=== PATIENT | female | born 1950 | race Caucasian/White ===

== ENCOUNTER 2018-01-01 18:27 | Emergency (ER) | payer MEDICARE, OTHER ==
[2018-01-01 19:00] VITALS: BP 149/73
--- NOTE | 2018-01-01 19:53 | ERPHSYRPT ---
- History of Present Illness Time Seen by Provider: 01/01/18 19:49 Source: patient, family Exam Limitations: no limitations Patient Subjective Stated Complaint: SEEN IN [facility] TODAY FOR WEAKNESS. LABS DONE AND POTASSIUM IS "HIGH" Triage Nursing Assessment: AMBULATED TO ROOM PER SELF. SKIN W/D, COLOR NORMAL. Physician History: [place] the patient is a 67-year-old female with her complaining that she was at [facility] today for lab work to evaluate why she has intermittent weakness about every 3 days. She received a call from [facility] and was told that her potassium level was high and that she needed to come to the ER for evaluation. The patient states she had rhabdomyolysis on May 10 and was admitted. She states the reason she had rhabdomyolysis at that time was do to her use of statin drugs. She has since stopped the use of statin drugs. About every third day she will have more than her usual weakness of her legs. She denies headaches, nausea, vomiting, or diarrhea. She denies urinary problems. Her past medical history is significant for rhabdomyolysis, hypertension, and anxiety. Timing/Duration: today Severity: mild Modifying Factors: Improves With: nothing Associated Symptoms: denies symptoms Allergies/Adverse Reactions: albuterol Allergy (Verified 01/01/18 19:08) codeine Allergy (Verified 01/01/18 19:08) cortisone Allergy (Verified 01/01/18 19:08) prednisone Allergy (Verified 01/01/18 19:08) [id number]-[id number] Reductase Inhibitor Adverse Reaction (Verified 01/01/18 19:08) Home Medications: Aspirin [[place] Aspirin] 81 mg PO DAILY 01/01/18 [History] Buspirone HCl [Buspar] 10 mg PO TID 01/01/18 [History] Estradiol/Norethindrone Acet [Combipatch 0.05-0.14 mg Ptch] 1 each TD UD [History] LORazepam [Lorazepam] 1 mg PO BID 01/01/18 [History] Metoprolol Succinate 25 mg Xl* [Toprol-Xl 25MG Tablets] 25 mg PO DAILY [History] Hx Tetanus, Diphtheria Vaccination/Date Given: No Hx Influenza Vaccination/Date Given: No Hx Pneumococcal Vaccination/Date Given: Yes - Review of Systems Constitutional: Weakness Eyes: No Symptoms Ears, Nose, & Throat: No Symptoms Respiratory: No Cough, No Dyspnea Cardiac: No Chest Pain, No Edema, No Syncope Abdominal/Gastrointestinal: No Abdominal Pain, No Nausea, No Vomiting, No Diarrhea Genitourinary Symptoms: No Dysuria Musculoskeletal: No Back Pain, No Neck Pain Skin: No Rash Neurological: No Dizziness, No Focal Weakness, No Sensory Changes Psychological: No Symptoms Endocrine: No Symptoms Hematologic/Lymphatic: No Symptoms Immunological/Allergic: No Symptoms All Other Systems: Reviewed and Negative - Past Medical History Pertinent Past Medical History: Yes Neurological History: No Pertinent History ENT History: Cataracts Cardiac History: Congestive Heart Failure, High Cholesterol, Hypertension, Other Respiratory History: COPD, Pneumonia Endocrine Medical History: No Pertinent History Musculoskeletal History: Arthritis, Osteoarthritis GI Medical History: Diverticulitis History: Other Other Medical History: RHABDOMYOLOSIS, CYSTOCELE, UTERINE PROLAPSE - Past Surgical History Past Surgical History: Yes Female Surgical History: Tubal Ligation Other Surgical History: BIOPSY RIGHT BREAST, SINUS SURGERY - Social History Smoking Status: Current every day smoker How long have you smoked: 50 Exposure to second hand smoke: No Drug Use: none Patient Lives Alone: No - Female History Hx Now: No - Nursing Vital Signs Nursing Vital Signs: Initial Vital Signs Temperature 97.7 F 01/01/18 18:45 Pulse Rate 51 L 01/01/18 18:45 Respiratory Rate 16 01/01/18 18:45 Blood Pressure 149/73 01/01/18 18:45 O2 Sat by Pulse Oximetry 96 01/01/18 18:45 Pain Scale Pain Intensity 0 - Physical Exam General Appearance: no apparent distress, alert Eye Exam: PERRL/EOMI, eyes nml inspection Ears, Nose, Throat Exam: normal ENT inspection, TMs normal, pharynx normal, moist mucous membranes Neck Exam: normal inspection, non-tender, supple, full range of motion Respiratory Exam: normal breath sounds, lungs clear, No respiratory distress Cardiovascular Exam: regular rate/rhythm, normal heart sounds, normal peripheral pulses Gastrointestinal/Abdomen Exam: soft, normal bowel sounds, No tenderness, No mass Pelvic Exam: not done Rectal Exam: not done Back Exam: normal inspection, normal range of motion, No CVA tenderness, No vertebral tenderness Extremity Exam: normal inspection, normal range of motion, pelvis stable Neurologic Exam: alert, oriented x 3, cooperative, normal mood/affect, nml cerebellar function, nml station & gait, sensation nml, No motor deficits Skin Exam: normal color, warm, dry, No rash Lymphatic Exam: No adenopathy SpO2 Interpretation: normal SpO2: 96 Oxygen Delivery: Room Air Ordered Tests: Active Orders 24 hr Category Date Time Status CBC W DIFF Stat Lab 01/01/18 20:16 Completed CMP Stat Lab 01/01/18 20:16 Completed Lactic Acid Stat Lab 01/01/18 20:12 Completed Myoglobin Stat Lab 01/01/18 20:16 Completed TROPONIN Q3H Lab 01/01/18 20:16 Received TROPONIN Q3H Lab 01/01/18 23:00 Ordered TROPONIN Q3H Lab 01/02/18 02:00 Ordered TROPONIN Q3H Lab 01/02/18 05:00 Ordered TROPONIN Q3H Lab 01/02/18 08:00 Ordered TSH [TSH, 3RD Generation] Stat Lab 01/01/18 20:16 Received UA W/RFX UR CULTURE Stat Lab 01/01/18 19:50 Received Lab/Rad Data: Laboratory Result Diagrams 01/01/18 20:16 01/01/18 20:16 Laboratory Results 01/01/18 01/01/18 01/01/18 Range/Units 20:16 20:16 20:16 WBC 8.9 (4.0-10.5) K/mm3 RBC 4.53 (4.1-5.4) M/mm3 Hgb 15.4 (12.0-16.0) gm/dl Hct 44.5 (35-47) % MCV 98.2 (78-100) fl MCH 34.0 H (26-32) pg MCHC 34.6 (32-36) g/dl RDW 13.5 (11.5-14.0) % Plt Count 196 (150-450) K/mm3 MPV 11.1 H (6-9.5) fl Gran % 72.3 H (36.0-66.0) % Eos # (Auto) 0.08 (0-0.5) Absolute Lymphs (auto) 1.50 (1.0-4.6) Absolute Monos (auto) 0.88 (0.0-1.3) Lymphocytes % 16.8 L (24.0-44.0) % Monocytes % 9.8 (0.0-12.0) % Eosinophils % 0.9 (0.00-5.0) % Basophils % 0.2 (0.0-0.4) % Absolute Granulocytes 6.46 (1.4-6.9) Basophils # 0.02 (0-0.4) Sodium 140 (137-145) mmol/L Potassium 4.3 (3.5-5.1) mmol/L Chloride 105 (98-107) mmol/L Carbon Dioxide 27 (22-30) mmol/L Anion Gap 12.2 (5-15) MEQ/L BUN 25 H (7-17) mg/dL Creatinine 0.94 (0.52-1.04) mg/dL Estimated GFR > 60.0 ML/MIN Glucose 93 (74-106) mg/dL Lactic Acid (0.4-2.0) Calcium 9.8 (8.4-10.2) mg/dL Total Bilirubin 0.60 (0.2-1.3) mg/dL AST 23 (14-36) U/L ALT 21 (0-35) U/L Alkaline Phosphatase 66 (38-126) U/L Myoglobin 53.2 (0-61.5) ng/mL Serum Total Protein 7.8 (6.3-8.2) g/dL Albumin 4.6 (3.5-5.0) g/dL 01/01/18 Range/Units 20:12 WBC (4.0-10.5) K/mm3 RBC (4.1-5.4) M/mm3 Hgb (12.0-16.0) gm/dl Hct (35-47) % MCV (78-100) fl MCH (26-32) pg MCHC (32-36) g/dl RDW (11.5-14.0) % Plt Count (150-450) K/mm3 MPV (6-9.5) fl Gran % (36.0-66.0) % Eos # (Auto) (0-0.5) Absolute Lymphs (auto) (1.0-4.6) Absolute Monos (auto) (0.0-1.3) Lymphocytes % (24.0-44.0) % Monocytes % (0.0-12.0) % Eosinophils % (0.00-5.0) % Basophils % (0.0-0.4) % Absolute Granulocytes (1.4-6.9) Basophils # (0-0.4) Sodium (137-145) mmol/L Potassium (3.5-5.1) mmol/L Chloride (98-107) mmol/L Carbon Dioxide (22-30) mmol/L Anion Gap (5-15) MEQ/L BUN (7-17) mg/dL Creatinine (0.52-1.04) mg/dL Estimated GFR ML/MIN Glucose (74-106) mg/dL Lactic Acid 0.5 (0.4-2.0) Calcium (8.4-10.2) mg/dL Total Bilirubin (0.2-1.3) mg/dL AST (14-36) U/L ALT (0-35) U/L Alkaline Phosphatase (38-126) U/L Myoglobin (0-61.5) ng/mL Serum Total Protein (6.3-8.2) g/dL Albumin (3.5-5.0) g/dL - Departure Time of Disposition: 20:59 Departure Disposition: Home Clinical Impression: Normal exam Condition: Stable Critical Care Time: No Referrals: MARLEY JAVED [Primary Care Provider] - Additional Instructions: You had a normal examination and normal laboratory results tonight. Your serum potassium level is normal at 4.3. Your myoglobin level is also normal at 53.2. At this time you do not have rhabdomyolysis. Follow-up with your primary medical doctor for discussion of your other laboratory results that were performed earlier.
[2018-01-01 20:18] LABS: BASOPHIL % 0.2 % (0.0-0.4); Basophil (Absolute #) 0.02 (0-0.4); Eosinophil % 0.9 % (0.00-5.0); Eosinophil (Absolute #) 0.08 (0-0.5); Granulocyte Absolute (ANC) 6.46 (1.4-6.9); Granulocytes % 72.3 % (36.0-66.0); Hematocrit 44.5 % (35-47); Hemoglobin 15.4 gm/dl (12.0-16.0); Lymphocytes % 16.8 % (24.0-44.0); Mean Cell Volume 98.2 fl (78-100); Mean Corpuscular Hgb Concent. 34.6 g/dl (32-36); Mean Platelet Volume 11.1 fl (6-9.5); Monocyte (Absolute #) 0.88 (0.0-1.3); Monocytes % 9.8 % (0.0-12.0); Platelet Count 196 K/mm3 (150-450); Red Blood Count 4.53 M/mm3 (4.1-5.4); Red Cell Distribution Width 13.5 % (11.5-14.0); White Blood Count 8.9 K/mm3 (4.0-10.5)
[2018-01-01 20:40] LABS: ALBUMIN 4.6 g/dL (3.5-5.0); ALKALINE PHOSPHATASE 66 U/L (38-126); ANION GAP 12.2 MEQ/L (5-15); BLOOD UREA NITROGEN 25 mg/dL (7-17); CHLORIDE 105 mmol/L (98-107); Calcium 9.8 mg/dL (8.4-10.2); Carbon Dioxide 27 mmol/L (22-30); Creatinine 1 0.94 mg/dL (0.52-1.04); Glucose 93 mg/dL (74-106); Potassium 4.3 mmol/L (3.5-5.1); SGOT/AST 23 U/L (14-36); SGPT/ALT 21 U/L (0-35); SODIUM 140 mmol/L (137-145); Total Protein 7.8 g/dL (6.3-8.2)
[2018-01-01 21:07] LABS: Appearance CLEAR (CLEAR); Bilirubin NEGATIVE (NEGATIVE); Blood 50 Ery/ul (0-5); Glucose NEGATIVE (NEGATIVE); Ketones NEGATIVE (NEGATIVE); Leukocyte Esterase NEGATIVE (NEGATIVE); Nitrite NEGATIVE (NEGATIVE); Protein,Urine Dip NEGATIVE (Negative); Urobilinogen NORMAL mg/dL (0-1)
[2018-01-01 21:08] VITALS: PULSE 56; O2SAT 98
[2018-01-01 21:09] LABS: Bacteria RARE /HPF (NEGATIVE); Epithelial Cells FEW /HPF (FEW)
== END 2018-01-01 21:07 | disposition home or self-care (01) ==
LOC: ED 18:27
DX: Z03.89 Encounter for observation for other suspected diseases and conditions ruled out (principal); Z79.82 Long term (current) use of aspirin; Z79.899 Other long term (current) drug therapy
CPT/HCPCS: 36415; 71046; 80053; 81000; 82306; 83605; 83874; 84443; 84484; 85025; 85379; 99283

== ENCOUNTER 2019-05-04 09:18 | Day surgery (SDC) | payer MEDICARE, OTHER ==
--- NOTE | 2019-05-04 08:40 | HP ---
DATE OF SURGERY: 05/04/2019 HISTORY OF PRESENT ILLNESS: The patient is a 69 year-old who had a positive stool blood test. No visible gross rectal bleeding. No prior colonoscopy. No change in bowel movements. No pain. Family history negative for colon cancer, negative for ulcerative colitis. She is in need of screening colonoscopy. PAST MEDICAL HISTORY: Hypertension. Anxiety. Lupus. PAST SURGICAL HISTORY: Tonsillectomy. Adenoidectomy. Breast surgery. Nose surgery. Tubal in the past. MEDICATIONS: Aspirin. Metoprolol. Lorazepam. Duloxetine. Combipatch (hormone patch). ALLERGIES: ALBUTEROL. CODEINE. PREDNISONE. CORTISONE. FAMILY HISTORY: Negative for colon cancer. Family history of cancer and stroke. SOCIAL HISTORY: One half pack per day smoker. Denies alcohol abuse. REVIEW OF SYSTEMS: Fourteen systems reviewed. No chest pain or palpitations other systems negative or noncontributory as above and per preadmission questionnaire. PHYSICAL EXAMINATION: GENERAL: No acute distress. HEENT: Sclerae nonicteric. NECK: No JVD. CHEST: Equal excursion, nonlabored breathing. CVS: Regular rate and rhythm. ABDOMEN: Soft. No peritoneal signs. EXTREMITIES: No edema. NEURO: Alert, oriented, moving extremities symmetrically. No gross motor deficits noted. RECTAL: Deferred timed to endoscopy exam. IMPRESSION: Need for screening colonoscopy. She not had a prior one and is a 69 year-old. I feel she is a candidate. Risks and benefits explained in detail but not limited to bleeding or infection, risk of bowel injury or perforation possibly requiring open procedure, risk of missed or nondiagnosis or incomplete exam possibly requiring barium enema, other studies or procedures, general risk of anesthesia or sedation, risk of bowel prep but not limited to. She understands and agrees to the planned procedure, will proceed with screening colonoscopy.
[2019-05-04] MEDS ORDERED: Lactated Ringers 1,000 ML IV SCH (10:00)
[2019-05-04] MEDS ORDERED: Amidate 20 MG/10 ML IV ONE (11:24)
[2019-05-04] MEDS ORDERED: DIPRIVAN 200 MG/20 ML IV ONE (11:24)
[2019-05-04] MEDS ORDERED: PHENYLEPHRINE HCL ONE (11:32)
[2019-05-04 12:37] VITALS: BP 150/73; PULSE 60; O2SAT 93
--- NOTE | 2019-05-04 14:13 | OP ---
SURGERY DATE/TIME: 05/04/2019 1126 PREOPERATIVE DIAGNOSIS: Need for screening colonoscopy. POSTOPERATIVE DIAGNOSES: 1) Colon polyps. 2) Diverticulosis. 3) Small internal and external hemorrhoids. 4) Fair bowel prep. PROCEDURES: 1) Colonoscopy to cecum. 2) Hot snare polypectomy small ascending colon polyp. 3) Hot snare polypectomy sigmoid colon polyp. 4) Hot biopsy removal of small raised lesion versus hyperplastic lesion, versus early polyps sigmoid colon and rectosigmoid colon. SURGEON: Dr. Iraj Ojeda. ANESTHESIA: MAC. ESTIMATED BLOOD LOSS: Minimal. INDICATIONS: As noted above. Risks and benefits explained in detail but not limited to and consent obtained. DESCRIPTION OF PROCEDURE AND FINDINGS: The patient is taken to endoscopy. MAC anesthesia induced. After official time out and no disagreement with planned procedure, digital rectal exam did not reveal any rectal masses. She did have some small internal hemorrhoids. Video colonoscope inserted and passed up the tortuous sigmoid, descending, transverse and ascending colon. She did have some diverticulosis. Prep overall was fair. On withdrawal of the scope there was a small 3 to 4 mm polyp in the proximal ascending colon removed with hot snare polypectomy with brief bursts of cautery. Good hemostasis noted. Prep overall was fair. There was a little bit of liquidy stool that was suction irrigated as clear as possible. The scope is slowly and carefully withdrawn over the next 10 minutes out the sigmoid colon removing a 5 or 6 mm polyp removed with hot snare polypectomy with brief bursts of cautery. It appeared to be completely removed. She did have some diverticulosis in the left colon. The scope pulled back to the more distal sigmoid colon. There was three small raised lesions versus hyperplastic lesions versus early polyps removed with hot biopsy forceps in the more distal sigmoid colon as well another one in the rectosigmoid colon. Good hemostasis noted. Otherwise she had some small internal hemorrhoids. There were no signs of any large polyps, masses or obstructing lesions. She tolerated the procedure well. Findings discussed with the family out in the waiting area.
== END 2019-05-04 12:55 | disposition home or self-care (01) ==
LOC: SDC 09:18
PROVIDERS: ATTEND Surgery
DX: Z12.11 Encounter for screening for malignant neoplasm of colon (principal); K57.30 Diverticulosis of large intestine without perforation or abscess without bleeding; D12.2 Benign neoplasm of ascending colon; K64.4 Residual hemorrhoidal skin tags; K64.8 Other hemorrhoids; I10 Essential (primary) hypertension; F41.9 Anxiety disorder, unspecified; Z79.899 Other long term (current) drug therapy; Z80.9 Family history of malignant neoplasm, unspecified
CPT/HCPCS: 88305; 99100; J2370; J2704

== ENCOUNTER 2022-09-17 13:48 | Emergency (ER) | payer MEDICARE, OTHER ==
--- NOTE | 2022-09-17 14:06 | ERPHSYRPT ---
- History of Present Illness Source: patient Exam Limitations: no limitations Timing/Duration: today Severity: mild Associated Symptoms: other (Palpitations), No shortness of breath, No chest pain Hx Tetanus, Diphtheria Vaccination/Date Given: No Hx Influenza Vaccination/Date Given: No Hx Pneumococcal Vaccination/Date Given: Yes <ARNEL CHAPARRO - Last Filed: 09/17/22 16:46> <MAKENNA RIZZO - Last Filed: 09/17/22 20:53> - History of Present Illness Time Seen by Provider: 09/17/22 14:06 Physician History: This is a 72-year-old white female patient of Dr. Javed and italian lecturer Dr. Mansoor Fam who presents with palpitations, rapid heart rate and hypertension. It came on suddenly when she was sitting without exertion. She states that she does not have chest pain of any kind at this time but when the onset of the above symptoms occurred, she felt a burning sensation in her chest bilaterally and into both arms. Patient has a pacemaker in place. She has been diagnosed in the past with sick sinus syndrome and bradycardia. She is also most recently been diagnosed with atrial fibrillation and is on metoprolol and Eliquis as well as a baby aspirin. Patient does have some psychiatric issues including anxiety and depression. She has a history of CHF and COPD. Patient feels as though she is dehydrated. She has not had a fever or cough. She denies abdominal pain. She has had no nausea vomiting or diarrhea symptoms. Upon arrival to the emergency department her heart rate is in the mid 90s to low 100s and a atrial fibrillation rhythm and her systolic blood pressure is 98. (ARNEL CHAPARRO) Allergies/Adverse Reactions: albuterol Allergy (Verified 09/17/22 14:14) cortisone Allergy (Verified 09/17/22 14:14) prednisone Allergy (Verified 09/17/22 14:14) codeine Adverse Reaction (Verified 09/17/22 14:14) Mudrium-AFN-VpO Reductase Inhibitor [Ystjqco-Lyy-Uul Reductase Inhibitor] Adverse Reaction (Verified 09/17/22 14:14) Home Medications: Aspirin [[place] Aspirin EC] 81 mg PO DAILY 01/01/18 [History] Duloxetine HCl 30 mg [Cymbalta 30 MG Capsule] 20 mg PO HS 05/04/19 [History] Estradiol/Norethindrone Acet [Combipatch 0.05-0.14 mg Ptch] 1 patch TD UD 05/04/19 [History] Apixaban [Eliquis] 1 tab PO BID 09/17/22 [History] Metoprolol Tartrate 1 tab PO BID 09/17/22 [History] hydrOXYzine HCL [Hydroxyzine HCl] 1 tab PO DAILY 09/17/22 [History] Travel Risk - International Travel Have you traveled outside of the country in past 3 weeks: No - Coronavirus Screening Are you exhibiting any of the following symptoms?: No Close contact with a COVID-19 positive Pt in past 14-21 Days: No <ARNEL CHAPARRO - Last Filed: 09/17/22 16:46> - Review of Systems Constitutional: No Symptoms Eyes: No Symptoms Ears, Nose, & Throat: No Symptoms Respiratory: No Symptoms Cardiac: Palpitations, No Chest Pain Abdominal/Gastrointestinal: No Symptoms Genitourinary Symptoms: No Symptoms Musculoskeletal: No Symptoms Skin: No Symptoms Neurological: No Symptoms Psychological: No Symptoms Endocrine: No Symptoms Hematologic/Lymphatic: No Symptoms Immunological/Allergic: No Symptoms All Other Systems: Reviewed and Negative <ARNEL CHAPARRO - Last Filed: 09/17/22 16:46> - Past Medical History Pertinent Past Medical History: Yes Neurological History: No Pertinent History ENT History: Cataracts Cardiac History: Congestive Heart Failure, Coronary Artery Disease, High Cholesterol, Hypertension, Other Respiratory History: CHF, COPD Endocrine Medical History: No Pertinent History Musculoskeletal History: Osteoarthritis GI Medical History: Diverticulitis History: Other Psycho-Social History: Anxiety, Depression Female Reproductive Disorders: Other Other Medical History: DEPRESSION, ANXIETY, adrenal tumor, aortic stenosis, hypertropic obstructive cardiomyopathy, carotid stenosis, cystocele with uterine prolapse, hematuria, bradycardia, sick sinus syndrome, rhabdomyolysis, renal cy st - Past Surgical History Past Surgical History: Yes Neuro Surgical History: No Pertinent History Cardiac: No Pertinent History Respiratory: No Pertinent History Gastrointestinal: No Pertinent History Genitourinary: No Pertinent History Musculoskeletal: No Pertinent History Female Surgical History: Tubal Ligation, Lumpectomy Other Surgical History: BIOPSY RIGHT BREAST, SINUS SURGERY-nasal polyps - Social History Smoking Status: Current every day smoker How long have you smoked: 50 years Exposure to second hand smoke: Yes Drug Use: none Patient Lives Alone: No <MEHDI CHAPARRODO BlayneMary - Last Filed: 09/17/22 16:46> - Physical Exam General Appearance: no apparent distress, alert, anxiety Eye Exam: PERRL/EOMI, eyes nml inspection Ears, Nose, Throat Exam: normal ENT inspection, moist mucous membranes Neck Exam: normal inspection, non-tender, supple, full range of motion Respiratory Exam: normal breath sounds, lungs clear, airway intact, No chest tenderness, No respiratory distress Cardiovascular Exam: irregular Gastrointestinal/Abdomen Exam: soft, normal bowel sounds, No tenderness Pelvic Exam: not done Rectal Exam: not done Back Exam: normal inspection, normal range of motion, No CVA tenderness, No vertebral tenderness Extremity Exam: normal inspection, normal range of motion, pelvis stable Neurologic Exam: alert, oriented x 3, cooperative, safe technician II-XII nml as tested, normal mood/affect, nml cerebellar function, nml station & gait, sensation nml Skin Exam: normal color, warm, dry Lymphatic Exam: No adenopathy SpO2 Interpretation: normal O2 Delivery: Room Air <MEHDI CHAPARRODO BlayneMary - Last Filed: 09/17/22 16:46> - Nursing Vital Signs Nursing Vital Signs: Initial Vital Signs Pulse Rate 108 H 09/17/22 14:15 Respiratory Rate 17 09/17/22 14:15 Blood Pressure 114/85 09/17/22 14:15 O2 Sat by Pulse Oximetry 92 L 09/17/22 14:15 Pain Scale Pain Intensity 0 - Course Nursing assessment & vital signs reviewed: Yes EKG Interpreted by Me: RATE (116), A-fib, Other (No acute ischemic changes on today's twelve-lead EKG.) <SHANKARARNEL BlayneMary - Last Filed: 09/17/22 16:46> - Course EKG Interpreted by Me: RATE, Other <MAKENNA RIZZO - Last Filed: 09/17/22 20:53> Ordered Tests: Active Orders 24 hr Category Date Time Status Human Resources Trainee STAT Care 09/17/22 14:54 Active EKG-ER Only STAT Care 09/17/22 14:53 Active IV Insertion STAT Care 09/17/22 14:53 Active Pulse Oximetry (ED) STAT Care 09/17/22 14:53 Active CBC W DIFF Stat Lab 09/17/22 15:08 Completed CMP Stat Lab 09/17/22 15:08 Completed MAGNESIUM Stat Lab 09/17/22 15:08 Completed NT PRO BNPII Stat Lab 09/17/22 15:08 Completed TROPONIN Q4H Lab 09/17/22 15:08 Completed TROPONIN Q4H Lab 09/17/22 19:03 Completed TROPONIN Q4H Lab 09/17/22 23:00 Ordered UA W/RFX UR CULTURE Stat Lab 09/17/22 15:27 Completed Medication Summary Generic Name Dose Route Start Last Admin Trade Name Freq PRN Reason Stop Dose Admin Sodium Chloride 1,000 mls @ 100 mls/hr 09/17/22 15:00 09/17/22 18:30 Sodium Chloride 0.9% 1000 Ml IV 10/17/22 14:59 Infused .Q10H MIAH Infusion Discontinued Medications Generic Name Dose Route Start Last Admin Trade Name Freq PRN Reason Stop Dose Admin Apixaban 5 mg 09/17/22 18:28 09/17/22 18:44 Apixaban 2.5 Mg Tablet PO 09/17/22 18:29 5 mg STAT ONE Administration Metoprolol Tartrate 100 mg 09/17/22 18:28 09/17/22 18:44 Metoprolol Tartrate 50 Mg Tablet PO 09/17/22 18:29 100 mg STAT ONE Administration Metoprolol Tartrate Confirm 09/17/22 18:31 Metoprolol Tartrate 50 Mg Tablet Administered 09/17/22 18:32 Dose 100 mg .ROUTE .Astaro-MED ONE Lab/Rad Data: Laboratory Result Diagrams 09/17/22 15:08 09/17/22 15:08 Laboratory Results 09/17/22 09/17/22 09/17/22 Range/Units 19:03 15:27 15:08 WBC (4.0-10.5) x10^3/uL RBC (4.1-5.4) x10^6/uL Hgb (12.0-16.0) g/dL Hct (35-47) % MCV (78-100) fL MCH (26-32) pg MCHC (32-36) g/dL RDW (11.5-14.0) % Plt Count (150-450) x10^3/uL MPV (7.5-11.0) fL Gran % (36.0-66.0) % Immature Gran % (Auto) (0.00-0.4) % Nucleat RBC Rel Count (0.00-0.1) % Eos # (Auto) (0-0.5) x10^3/uL Immature Gran # (Auto) (0.00-0.03) x10^3u/L Absolute Lymphs (auto) (1.0-4.6) x10^3/uL Absolute Monos (auto) (0.0-1.3) x10^3/uL Absolute Nucleated RBC (0.00-0.01) x10^3u/L Lymphocytes % (24.0-44.0) % Monocytes % (0.0-12.0) % Eosinophils % (0.00-5.0) % Basophils % (0.0-0.4) % Absolute Granulocytes (1.4-6.9) x10^3/uL Basophils # (0-0.4) x10^3/uL Sodium (137-145) mmol/L Potassium (3.5-5.1) mmol/L Chloride (98-107) mmol/L Carbon Dioxide (22-30) mmol/L Anion Gap (5-15) MEQ/L BUN (7-17) mg/dL Creatinine (0.52-1.04) mg/dL Estimated GFR ML/MIN Glucose (74-106) mg/dL Calcium (8.4-10.2) mg/dL Magnesium (1.6-2.3) mg/dL Total Bilirubin (0.2-1.3) mg/dL AST (14-36) U/L ALT (0-35) U/L Alkaline Phosphatase (38-126) U/L Troponin I < 0.012 < 0.012 (0.000-0.034) ng/mL NT-Pro-B Natriuret Pep (<300) pg/mL Serum Total Protein (6.3-8.2) g/dL Albumin (3.5-5.0) g/dL Urine Color Yellow (Yellow) Urine Appearance Clear (Clear) Urine pH 7.0 (4.6-8.0) Ur Specific H[place] <=1.005 (1.005-1.030) Urine Protein Negative (Negative) Urine Glucose (UA) Negative (Negative) mg/dL Urine Ketones Negative (Negative) Urine Blood Small A (Negative) Urine Nitrite Negative (Negative) Urine Bilirubin Negative (Negative) Urine Urobilinogen 0.2 (0.2) mg/dL Ur Leukocyte Esterase Negative (Negative) U Hyaline Cast (Auto) NONE SEEN (0-2) /LPF Urine Microscopic RBC 11-20 A (0-5) /HPF Urine Microscopic WBC 0-2 (0-5) /HPF Ur Epithelial Cells None Seen (None Seen) /HPF Urine Bacteria Rare A (None Seen) /HPF Urine Culture Reflexed NO (NO) 09/17/22 09/17/22 Range/Units 15:08 15:08 WBC 10.0 (4.0-10.5) x10^3/uL RBC 4.53 (4.1-5.4) x10^6/uL Hgb 15.1 (12.0-16.0) g/dL Hct 44.3 (35-47) % MCV 97.8 (78-100) fL MCH 33.3 H (26-32) pg MCHC 34.1 (32-36) g/dL RDW 13.0 (11.5-14.0) % Plt Count 250 (150-450) x10^3/uL MPV 11.0 (7.5-11.0) fL Gran % 72.0 H (36.0-66.0) % Immature Gran % (Auto) 0.4 (0.00-0.4) % Nucleat RBC Rel Count 0.0 (0.00-0.1) % Eos # (Auto) 0.13 (0-0.5) x10^3/uL Immature Gran # (Auto) 0.04 H (0.00-0.03) x10^3u/L Absolute Lymphs (auto) 1.77 (1.0-4.6) x10^3/uL Absolute Monos (auto) 0.81 (0.0-1.3) x10^3/uL Absolute Nucleated RBC 0.00 (0.00-0.01) x10^3u/L Lymphocytes % 17.7 L (24.0-44.0) % Monocytes % 8.1 (0.0-12.0) % Eosinophils % 1.3 (0.00-5.0) % Basophils % 0.5 (0.0-0.4) % Absolute Granulocytes 7.18 H (1.4-6.9) x10^3/uL Basophils # 0.05 (0-0.4) x10^3/uL Sodium 141 (137-145) mmol/L Potassium 4.4 (3.5-5.1) mmol/L Chloride 105 (98-107) mmol/L Carbon Dioxide 27 (22-30) mmol/L Anion Gap 13.9 (5-15) MEQ/L BUN 26 H (7-17) mg/dL Creatinine 1.24 H (0.52-1.04) mg/dL Estimated GFR 44.9 ML/MIN Glucose 143 H (74-106) mg/dL Calcium 8.8 (8.4-10.2) mg/dL Magnesium 2.3 (1.6-2.3) mg/dL Total Bilirubin 0.50 (0.2-1.3) mg/dL AST 29 (14-36) U/L ALT 25 (0-35) U/L Alkaline Phosphatase 80 (38-126) U/L Troponin I (0.000-0.034) ng/mL NT-Pro-B Natriuret Pep 2600 (<300) pg/mL Serum Total Protein 8.3 H (6.3-8.2) g/dL Albumin 4.3 (3.5-5.0) g/dL Urine Color (Yellow) Urine Appearance (Clear) Urine pH (4.6-8.0) Ur Specific [place] (1.005-1.030) Urine Protein (Negative) Urine Glucose (UA) (Negative) mg/dL Urine Ketones (Negative) Urine Blood (Negative) Urine Nitrite (Negative) Urine Bilirubin (Negative) Urine Urobilinogen (0.2) mg/dL Ur Leukocyte Esterase (Negative) U Hyaline Cast (Auto) (0-2) /LPF Urine Microscopic RBC (0-5) /HPF Urine Microscopic WBC (0-5) /HPF Ur Epithelial Cells (None Seen) /HPF Urine Bacteria (None Seen) /HPF Urine Culture Reflexed (NO) - Progress Progress: improved, re-examined Counseled pt/family regarding: lab results, diagnosis <ARNEL CHAPARRO - Last Filed: 09/17/22 16:46> - Progress Counseled pt/family regarding: need for follow-up <MAKENAN RIZZO - Last Filed: 09/17/22 20:53> - Progress Progress Note: 09/17/22 16:47 I reexamined this patient. Patient has no chest pain. She is not short of breath. I reviewed the results of the work-up thus far. We are awaiting the 4-hour troponin and twelve-lead EKG. Patient's systolic blood pressure at this time is 102. Patient was told that she could not be on any diuretics despite having a history of CHF because of cardiac valvular issues. (ARNEL CHAPARRO) 09/17/22 19:[address] Chaparro at 1900. Repeat EKG continues to show atrial fibrillation with a heart rate of [address] changes appreciated. 09/17/22 20:48 Repeat troponin came back negative. Patient having no chest pain. I did recommend a trial of PPI to see if that helps her symptoms. I encouraged the patient to follow-up with Dr. Javed as well as Dr. Fam within the next week. (MAKENNA RIZZO) Medical Desision Making - Diagnostic Testing Diagnostic test were ordered, analyzed, and reviewed by me: Yes Radiological Interpretation: Interpreted by me - Risk of complications The pt has a mod risk of morbidity or mortality based on: Need for prescription drug management <MAKENNA RIZZO - Last Filed: 09/17/22 20:53> <ARNEL CHAPARRO - Last Filed: 09/17/22 16:46> - Departure Departure Disposition: Home Critical Care Time: No <MAKENNA RIZZO - Last Filed: 09/17/22 20:53> - Departure Clinical Impression: Atrial fibrillation, Chest discomfort, GERD (gastroesophageal reflux disease) Condition: Good Referrals: MARLEY JAVED [Primary Care Provider] - Follow up/PCP as directed WANDA FAM [CONSULTING PHYSICIAN] - Follow Up with PCP/3 days Instructions: Arrhythmias (DC) Prescriptions: Omeprazole 40 mg PO QAM #30 cap
[2022-09-17] MEDS ORDERED: Sodium Chloride 0.9% 1000 ML 1,000 ML IV SCH (15:00)
[2022-09-17] MEDS ORDERED: Sodium Chloride 0.9% 1000 ML 1,000 ML ONE (15:00)
[2022-09-17 15:10] LABS: Absolute Neutrophil Ct (ANC) 7.18 x10^3/uL (1.4-6.9); BASOPHIL % 0.5 % (0.0-0.4); Basophil (Absolute #) 0.05 x10^3/uL (0-0.4); Eosinophil % 1.3 % (0.00-5.0); Eosinophil (Absolute #) 0.13 x10^3/uL (0-0.5); Hematocrit 44.3 % (35-47); Hemoglobin 15.1 g/dL (12.0-16.0); IMMATURE GRAN # 0.04 x10^3u/L (0.00-0.03); IMMATURE GRAN % 0.4 % (0.00-0.4); Lymphocyte (Absolute #) 1.77 x10^3/uL (1.0-4.6); Lymphocytes % 17.7 % (24.0-44.0); Mean Cell Volume 97.8 fL (78-100); Mean Corpuscular Hemoglobin 33.3 pg (26-32); Mean Corpuscular Hgb Concent. 34.1 g/dL (32-36); Monocyte (Absolute #) 0.81 x10^3/uL (0.0-1.3); Monocytes % 8.1 % (0.0-12.0); Platelet Count 250 x10^3/uL (150-450); Red Blood Count 4.53 x10^6/uL (4.1-5.4)
[2022-09-17 15:32] LABS: ALBUMIN 4.3 g/dL (3.5-5.0); ANION GAP 13.9 MEQ/L (5-15); BILIRUBIN,TOTAL 0.5 mg/dL (0.2-1.3); Calcium 8.8 mg/dL (8.4-10.2); Creatinine 1 1.24 mg/dL (0.52-1.04); EST GLOMERULAR FILTRATION RATE 44.9 ML/MIN; MAGNESIUM 2.3 mg/dL (1.6-2.3); Potassium 4.4 mmol/L (3.5-5.1); Total Protein 8.3 g/dL (6.3-8.2)
[2022-09-17 15:40] LABS: Appearance Clear (Clear); Bacteria Rare /HPF (None Seen); Bilirubin Negative (Negative); Blood Small (Negative); Epithelial Cells None Seen /HPF (None Seen); Glucose, Urine Negative (Negative); Hyaline Casts NONE SEEN /LPF (0-2); Ketones Negative (Negative); Leukocyte Esterase Negative (Negative); Nitrite Negative (Negative); Protein,Urine Dip Negative (Negative); Specific Gravity <=1.005 (1.005-1.030); Urobilinogen 0.2 mg/dL (0.2); WBC 0-2 /HPF (0-5)
[2022-09-17 15:44] LABS: ADD URINE CULTURE? NO (NO)
[2022-09-17] MEDS ORDERED: ELIQUIS 2.5 MG TABLET PO ONE (18:28)
[2022-09-17] MEDS ORDERED: Lopressor 50 MG PO ONE (18:28)
[2022-09-17] MEDS ORDERED: Lopressor 50 MG ONE (18:31)
[2022-09-17 19:35] VITALS: BP 112/94; PULSE 107; O2SAT 95
== END 2022-09-17 21:05 | disposition home or self-care (01) ==
LOC: ED 13:48
DX: I48.91 Unspecified atrial fibrillation (principal); R07.9 Chest pain, unspecified; K21.9 Gastro-esophageal reflux disease without esophagitis; E78.5 Hyperlipidemia, unspecified; I11.0 Hypertensive heart disease with heart failure; I50.9 Heart failure, unspecified; Z79.01 Long term (current) use of anticoagulants; Z79.899 Other long term (current) drug therapy; Z72.0 Tobacco use
CPT/HCPCS: 36000; 36415; 80053; 81001; 83735; 83880; 84484; 85025; 93005; 93041; 94760; 99284; A9270-GY